=== PATIENT | female | born 1945 | race Caucasian/White ===

== ENCOUNTER → 2016-11-10 | Outpatient (CLI) | payer MEDICARE, OTHER ==
[~2016-11-10] MED LIST: COZAAR50 MG PO; LOPRESSOR100 MG PO; PROGESTERONE200 MG PO
== END | disposition disaster alternative care site (69) ==
LOC: GBCOE 11:36
DX: Z12.31 Encounter for screening mammogram for malignant neoplasm of breast (principal)
CPT/HCPCS: G0202